=== PATIENT | female | born 1995 | race Caucasian/White ===

== ENCOUNTER 2018-01-01 06:22 | Inpatient (IN) | payer OTHER ==
[~2018-01-01 06:22] MED LIST: Buffered Lidocaine 0.9% SYRIN* 5 ML/SYR SYRINGE INTRADERM ONE; Metoclopramide IV* 5 MG/ML 2 ML VIAL IV SLOW PU ONE; Ondansetron INJ* 2 MG/ML VIAL IV ONE; Sodium Citrate/Citric Acid* 15 ML UDC PO ONE; ceFOXitin(*) 2 GM in NS 0.9% 50 ML* 50 ML IVPB SCH
[2018-01-01] MEDS ORDERED: ceFOXitin 2 GM IVPREMIX* 2 GM/50 ML BAG IVPB ONE (08:00)
[2018-01-01] MEDS ORDERED: Naloxone* 0.4 MG/ML 1 ML VIAL IV PRN ×2 (08:12→10:32)
[2018-01-01] MEDS ORDERED: diPHENhydraMINE IV* 50 MG/ML 1 ml VIAL (BENADRYL) IV PRN ×2 (08:12→10:32)
[2018-01-01] MEDS ORDERED: Acetaminophen IV 1GM/100ML * 1,000 MG/100 ML VIAL IVPB ONE (08:12)
[2018-01-01] MEDS ORDERED: fentaNYL* 50 MCG/ML 2 ML VIAL (100 MCG VIAL) IV PRN (08:12)
[2018-01-01] MEDS ORDERED: Scopolamine 1.5 mg* PATCH TRANSDERM PRN ×2 (08:12→10:32)
[2018-01-01] MEDS ORDERED: oxyCODONE TAB* 5 MG TAB PO PRN ×2 (08:12→10:32)
[2018-01-01] MEDS ORDERED: Ondansetron INJ* 2 MG/ML VIAL IV PRN ×2 (08:12→10:32)
[2018-01-01] MEDS ORDERED: Nalbuphine* 20 MG/ML 1 ML VIAL IV PRN (08:12)
[2018-01-01] MEDS ORDERED: HYDROmorphone INJ* 1 MG/ML CARPUJECT SYRINGE IV PRN (08:12)
[2018-01-01] MEDS ORDERED: Bupivacaine-MPF SPINAL* 7.5 MG/2 ML AMP ONE (08:29)
[2018-01-01] MEDS ORDERED: Morphine INJ* 10 MG/ML 1 ML CARPUJECT ONE (08:30)
[2018-01-01] MEDS ORDERED: fentaNYL* 50 MCG/ML 2 ML VIAL (100 MCG VIAL) ONE (08:30)
[2018-01-01] MEDS ORDERED: Morphine PF AMP (0.5MG/ML)* 5 MG/10 ML AMP ONE (08:31)
[2018-01-01] MEDS ORDERED: Phenylephrine IV* 40 MCG/ML 10 ML SYRINGE ONE (09:59)
[2018-01-01] MEDS ORDERED: Ketorolac INJ* 30 MG/ML 1 ML VIAL ONE (09:59)
[2018-01-01] MEDS ORDERED: OXYTOCIN* 10 UNITS/ML 1 ML VIAL ONE (09:59)
[2018-01-01] MEDS ORDERED: Witch Hazel PAD* JAR TOPICAL PRN (10:23)
[2018-01-01] MEDS ORDERED: oxyCODONE/Acetamin 5/325 MG* TAB PO PRN (10:32)
[2018-01-01] MEDS ORDERED: Acetaminophen TAB* 325 MG PO PRN (10:32)
[2018-01-01] MEDS: Docusate CAP* 100 MG PO SCH ×2 (13:55→20:23)
[2018-01-01] MEDS: Simethicone TAB* 80 MG TAB.CHEW PO SCH ×3 (13:55→20:23)
[2018-01-01] MEDS: Ketorolac INJ* 30 MG/ML 1 ML VIAL IV PRN (18:29)
[2018-01-02] MEDS: Ketorolac INJ* 30 MG/ML 1 ML VIAL IV PRN ×2 (00:32→05:58)
[2018-01-02 06:15] LABS: ABS Basophils 0 10^3/ul (0-0.2); ABS Eosinophils 0.1 10^3/ul (0-0.6); ABS Lymphocytes 1.1 10^3/ul (1.0-4.8); ABS Monocytes 0.7 10^3/ul (0-0.8); ABS Neutrophils 9.7 10^3/ul (1.5-7.7); ABS Nucleated RBC 0 10^3/ul; Eosinophil % 0.5 % (0-6); Hematocrit 24 % (35-47); Hemoglobin 8.2 g/dl (12.0-16.0); Lymphocyte % 9.6 % (25-47); Mean Corpuscular HGB Conc 34 g/dl (31-36); Mean Corpuscular Hemoglobin 30 pg (27-31); Mean Corpuscular Volume 87 fL (80-97); Mean Platelet Volume 9.4 um3 (7.4-10.4); Nucleated Red Blood Cells % 0; Platelet Count 160 10^3/ul (150-450); Red Blood Count 2.77 10^6/ul (4.0-5.4); Red Cell Distribution Width 15 % (10.5-15); White Blood Count 11.6 10^3/ul (3.5-10.8)
[2018-01-02] MEDS: oxyCODONE/Acetamin 5/325 MG* TAB PO PRN ×3 (07:43→19:42)
[2018-01-02] MEDS: Simethicone TAB* 80 MG TAB.CHEW PO SCH ×4 (07:43→19:42)
[2018-01-02] MEDS: Docusate CAP* 100 MG PO SCH ×3 (07:43→19:42)
[2018-01-02] MEDS: Ferrous Gluconate TAB* 324 MG TAB PO SCH ×2 (07:43→19:42)
--- NOTE | 2018-01-02 12:06 | OP ---
DATE OF OPERATION: 01/01/18 - ROOM #116 DATE OF : 89 SURGEON: Gareth Pedro MD INTEGRATED CIRCUITS INSPECTOR: Donna Hester CNM ANESTHESIOLOGIST: Dr. Quintanilla. ANESTHESIA: Spinal. PRE-OP DIAGNOSIS: 39 weeks gestation with a breech fetus. POST-OP DIAGNOSIS: 39 weeks gestation with a breech fetus. PROCEDURE PERFORMED: Primary low-transverse section. ESTIMATED BLOOD LOSS: 800 cc. URINE OUTPUT: 100 cc. IV FLUIDS: 2500 cc of lactated Ringers. MATERIALS TO LAB: Cord blood. INDICATIONS: This patient is a 22-year-old 1, para 0, followed in the clinic with a breech fetus. The patient had a known bicornuate uterus and, after discussion, the patient did not desire an external cephalic version attempt. section was scheduled and consent was signed. FINDINGS: Normal-appearing fallopian tubes and ovaries. Uterus appeared to have a more arcuate shape. Fetus was in the kayy breech presentation. Delivery was productive of a female infant, weighing 7 pounds 11 ounces with Apgars of 9 and 9. Time of delivery was 0937. COMPLICATIONS: None. DESCRIPTION OF PROCEDURE: The risks, benefits, and alternatives were described to the patient and informed consent was obtained. The patient was taken to the operating room with IV running where spinal anesthesia was induced and found to be adequate. The patient was prepped and draped in the normal sterile fashion in the dorsal supine position with leftward tilt. A Pfannenstiel skin incision was made with a scalpel and this was carried down to the underlying fascia sharply. The fascia was then scored in the midline with the scalpel. The incision was extended using Ybarra scissors. The rectus muscles were dissected off the rectus fascia using blunt and sharp dissection. The rectus muscles were in the midline bluntly. The peritoneum was also entered bluntly. A bladder blade was placed. A bladder flap was created sharply using Metzenbaum scissors. A low transverse uterine incision was made with the scalpel. This was carried down to the amniotic cavity which was productive of clear fluid. The incision was extended with blunt traction. The breech was elevated to the level of the incision without difficulty and delivered through the incision. With fundal pressure and gentle traction, the delivered to the level of the hips, and both legs were swept down and out. The was wrapped with a moistened towel, and she was rotated back and forth until each arm could be swept down and out. The head was kept in a flexed position, and delivered without difficulty. The had good tone and cried shortly after delivery. The cord was doubly clamped and cut. The infant was then handed to the awaiting ear machine operator. Cord blood was collected. The placenta then delivered with manual extraction. The uterus was then exteriorized and cleared of all clots and debris. The uterine incision was reapproximated using 0 Polysorb in a running-locked fashion. A second layer of imbricating sutures of 0 Polysorb was also placed with good hemostasis. The posterior cul-de-sac was irrigated with saline. The uterus was then returned to the abdomen, and the incision was reinspected and noted to be hemostatic. The peritoneum was closed with 3-0 Polysorb in a running fashion. The fascia was closed with 0 Polysorb in a running fashion. Subcutaneous tissues were reapproximated using 3-0 Vicryl in interrupted sutures. The skin was then closed with 4-0 Monocryl in a subcuticular stitch. Mastisol and Steri-Strips were placed over the incision which was then covered with a sterile bandage. The patient tolerated the procedure well. Sponge, lap, and needle counts were correct x2. [id number]/[facility] #: [id number] [facility]
[2018-01-02] MEDS: Ibuprofen TAB* 600 MG PO SCH ×2 (12:10→17:59)
[2018-01-03] MEDS: Ibuprofen TAB* 600 MG PO SCH ×4 (00:09→20:21)
[2018-01-03] MEDS: oxyCODONE/Acetamin 5/325 MG* TAB PO PRN ×5 (00:10→20:21)
[2018-01-03] MEDS: Docusate CAP* 100 MG PO SCH ×3 (08:21→20:20)
[2018-01-03] MEDS: Ferrous Gluconate TAB* 324 MG TAB PO SCH ×2 (08:22→20:20)
[2018-01-03] MEDS: Simethicone TAB* 80 MG TAB.CHEW PO SCH ×4 (08:22→20:20)
[2018-01-04] MEDS: oxyCODONE/Acetamin 5/325 MG* TAB PO PRN ×2 (03:30→09:36)
[2018-01-04] MEDS: Ibuprofen TAB* 600 MG PO SCH ×3 (03:30→09:37)
[2018-01-04 08:07] VITALS: BP 115/80
[2018-01-04] MEDS ORDERED: Scopolamine PATCH Remove* 1 NOTE MISC PATCH OFF ONE (08:13)
[2018-01-04] MEDS: Ferrous Gluconate TAB* 324 MG TAB PO SCH (09:36)
[2018-01-04] MEDS: Docusate CAP* 100 MG PO SCH (09:36)
[2018-01-04] MEDS: Simethicone TAB* 80 MG TAB.CHEW PO SCH (09:36)
[2018-01-04] MEDS ORDERED: Scopolamine PATCH Remove* 1 NOTE MISC PATCH OFF PRN (10:33)
== END 2018-01-04 12:08 | disposition home or self-care (01) | DRG 766 ==
LOC: MCHOB 06:22
PROVIDERS: ADMIT Obstetrics & Gynecology; ATTEND Obstetrics & Gynecology
PROC: 10D00Z1 Extraction of Products of Conception, Low, Open Approach (ICD-10-PCS; principal; 2018-01-01 08:45)
DX: O32.1XX0 Maternal care for breech presentation, not applicable or unspecified (principal); O90.81 Anemia of the puerperium; D64.9 Anemia, unspecified; Z3A.39 39 weeks gestation of pregnancy; Z37.0 Single live birth
CPT/HCPCS: 36415; 85025; A9270-GY; J0694; J1885; J2270; J2405; J2590; J2765; J3010

== ENCOUNTER 2019-10-12 00:42 | Inpatient (IN) | payer OTHER ==
[~2019-10-12 00:42] MED LIST changes: -Buffered Lidocaine 0.9% SYRIN* 5 ML/SYR SYRINGE INTRADERM ONE; +Buffered Lidocaine 1% SYRIN* 1 ML/SYRINGE INTRADERM ONE; -Metoclopramide IV* 5 MG/ML 2 ML VIAL IV SLOW PU ONE; -Ondansetron INJ* 2 MG/ML VIAL IV ONE; -Sodium Citrate/Citric Acid* 15 ML UDC PO ONE; -ceFOXitin(*) 2 GM in NS 0.9% 50 ML* 50 ML IVPB SCH
[2019-10-12] MEDS ORDERED: Ondansetron INJ* 2 MG/ML VIAL IV ONE (06:00)
[2019-10-12] MEDS ORDERED: Lactated Ringers 1000 ML Bag* 1,000 ML IV SCH ×2 (06:00→08:00)
[2019-10-12] MEDS ORDERED: Famotidine IV* 10 MG/ML 2 ML (20 mg) IV ONE (06:00)
[2019-10-12] MEDS ORDERED: Sodium Citrate/Citric Acid* 15 ML UDC PO ONE (06:00)
[2019-10-12] MEDS ORDERED: ceFOXitin 2 GM IVPREMIX* 2 GM/50 ML BAG ONE (06:08)
[2019-10-12 06:35] LABS: Urine Benzodiazepine Screen None Detected (None Detect); Urine Opiates Screen None Detected (None Detect)
[2019-10-12] MEDS ORDERED: fentaNYL* 50 MCG/ML 2 ML VIAL (100 MCG VIAL) ONE (07:39)
[2019-10-12] MEDS ORDERED: Morphine PF AMP (0.5MG/ML)* 5 MG/10 ML AMP ONE (07:40)
[2019-10-12] MEDS ORDERED: Morphine 10 MG/ML VIAL (1 ml) ONE (07:40)
[2019-10-12] MEDS ORDERED: Witch Hazel PAD* JAR TOPICAL PRN (07:48)
[2019-10-12] MEDS ORDERED: OXYTOCIN* 10 UNITS/ML 1 ML VIAL ONE (08:26)
[2019-10-12] MEDS ORDERED: Metoclopramide IV* 5 MG/ML 2 ML VIAL IV PRN (08:43)
[2019-10-12] MEDS ORDERED: Naloxone* 0.4 MG/ML 1 ML VIAL IV PRN ×2 (08:43→19:30)
[2019-10-12] MEDS ORDERED: Naloxone* 2 MG in NS 0.9% 250 ML* 250 ML IV PRN (08:43)
[2019-10-12] MEDS ORDERED: Ondansetron INJ* 2 MG/ML VIAL IV PRN (08:43)
[2019-10-12] MEDS ORDERED: Nalbuphine* 10 MG/ML 1 ML VIAL IV PRN ×2 (08:43→19:30)
[2019-10-12] MEDS ORDERED: fentaNYL* 50 MCG/ML 2 ML VIAL (100 MCG VIAL) IV PRN (08:46)
[2019-10-12] MEDS: Simethicone TAB* 80 MG TAB.CHEW PO SCH ×4 (09:35→20:16)
[2019-10-12] MEDS: Docusate CAP* 100 MG PO SCH ×3 (09:35→20:16)
[2019-10-12] MEDS: Ibuprofen TAB* 400 MG PO SCH ×3 (09:41→21:00)
[2019-10-12] MEDS ORDERED: Acetaminophen TAB* 325 MG PO ONE (12:15)
[2019-10-12] MEDS ORDERED: oxyCODONE TAB* 5 MG TAB PO ONE (12:15)
[2019-10-12] MEDS ORDERED: oxyCODONE TAB* 5 MG TAB ONE (12:20)
[2019-10-12] MEDS ORDERED: Acetaminophen TAB* 325 MG ONE (12:20)
[2019-10-12] MEDS: Acetaminophen TAB* 325 MG PO PRN (12:20)
[2019-10-12] MEDS ORDERED: Acetaminophen TAB* 325 MG PO PRN (19:29)
[2019-10-12] MEDS ORDERED: oxyCODONE TAB* 5 MG TAB PO PRN (19:30)
[2019-10-12] MEDS ORDERED: Ibuprofen TAB* 400 MG PO SCH (20:00)
[2019-10-13] MEDS ORDERED: oxyCODONE TAB* 5 MG TAB PO PRN ×2 (00:43)
--- NOTE | 2019-10-13 03:35 | OP ---
DATE OF OPERATION: 10/12/19 - ROOM #116 DATE OF : [birth year] SURGEON: Gareth Pedro MD. CLAIMS COORDINATOR: Sultana Shine CNM. ANESTHESIOLOGIST: Dr. Choe. ANESTHESIA: Spinal. PRE-OP DIAGNOSIS: 39 weeks gestation with a history of previous , keloid scar. POST-OP DIAGNOSIS: 39 weeks gestation with a history of previous , keloid scar. OPERATIVE PROCEDURE: Repeat low-transverse section. Keloid excision. ESTIMATED BLOOD LOSS: 600 cc. URINE OUTPUT: 75 cc. IV FLUIDS: 1600 cc lactated Ringer's. MATERIALS TO LAB: Cord blood. INDICATIONS: This patient is a 23-year-old 2, para 1, who presented today at 39 weeks gestation for a scheduled repeat section. The patient's course was uncomplicated. She was extensively counseled and consent was signed. FINDINGS: Normal-appearing uterus, fallopian tubes, and ovaries. Delivery was productive of a male infant weighing 7 pounds 6 ounces with Apgars of 9 and 9. Time of delivery was 8:26 a.m. COMPLICATIONS: None. DESCRIPTION OF PROCEDURE: The risks, benefits, and alternatives were described to the patient, and informed consent was obtained. The patient was taken to the operating room with IV running, where spinal anesthesia was induced and found to be adequate. The patient was prepped and draped in normal sterile fashion in the dorsal supine position with a leftward tilt. A Pfannenstiel skin incision was made with a scalpel around the patient's previous incision which was mostly a thick keloid scar, about 3-4mm thick. The scar tissue was grasped with an Allis, and removed with the scalpel. This was then carried down to the underlying fascia using the scalpel. The fascia was scored in the midline, and the incision was extended using Ybarra scissors. The fascia was dissected off the underlying rectus muscles using blunt and sharp dissection. The rectus muscles were in the midline using dissection with a Shanique clamp. The peritoneum was then entered sharply. A bladder blade was placed. A bladder flap was created sharply using Metzenbaum scissors. A low transverse uterine incision was then made with the scalpel. This was carried down to the amniotic membranes. The membranes were then ruptured, productive of clear fluid. The uterine incision was extended using blunt traction. The head was elevated to the level of the incision, and, with fundal pressure, the head delivered without difficulty. The shoulders then were also both delivered and the body followed. The had excellent tone and cried immediately on delivery. The cord was doubly clamped and cut. The infant was then handed to the awaiting poultry culler. Cord blood was collected. The placenta was delivered with manual extraction. The uterus was then exteriorized and cleared of all clots and debris. The uterine incision was then reapproximated using 0 Vicryl in a running-locked fashion. A second layer of imbricating 0 Vicryl sutures was then also placed for good hemostasis. The posterior cul-de-sac was irrigated with saline. The uterus was then returned to the abdomen. The incision was reinspected and still noted to be hemostatic. The peritoneum was closed with 3-0 Vicryl in a running fashion. The fascia was closed with 0 Vicryl in a running fashion. The subcutaneous tissues were copiously irrigated and made hemostatic using the Bovie. The subcutaneous tissues were then reapproximated using 3-0 Vicryl in interrupted sutures. The skin was then closed with latosha. A sterile bandage was then placed over the incision. The patient tolerated the procedure well. Sponge, lap, and needle counts were correct x2. [id number]/[facility] #: [id number] [facility]
[2019-10-13] MEDS: Ibuprofen TAB* 600 MG PO SCH ×4 (03:39→20:53)
[2019-10-13 06:38] LABS: ABS Basophils 0.1 10^3/ul (0-0.2); ABS Lymphocytes 1.2 10^3/ul (1.0-4.8); ABS Monocytes 0.6 10^3/ul (0-0.8); ABS Neutrophils 9.4 10^3/ul (1.5-7.7); Eosinophil % 0.4 %; Hematocrit 26 % (35-47); Hemoglobin 8.8 g/dL (12.0-16.0); Lymphocyte % 10.9 %; Mean Corpuscular HGB Conc 34 g/dL (31-36); Mean Corpuscular Hemoglobin 27 pg (27-31); Mean Corpuscular Volume 81 fL (80-97); Mean Platelet Volume 9.3 fL (7.4-10.4); Platelet Count 142 10^3/uL (150-450); Red Blood Count 3.21 10^6 /uL (3.70-4.87); Red Cell Distribution Width 16 % (10-15); White Blood Count 11.3 10^3/uL (3.5-10.8)
[2019-10-13] MEDS: Docusate CAP* 100 MG PO SCH ×3 (08:24→20:52)
[2019-10-13] MEDS: Simethicone TAB* 80 MG TAB.CHEW PO SCH ×4 (08:24→20:52)
[2019-10-13] MEDS: Acetaminophen TAB* 325 MG PO PRN ×2 (08:24→14:31)
[2019-10-13] MEDS: Ferrous Gluconate TAB* 324 MG TAB PO SCH (08:24)
[2019-10-13] MEDS ORDERED: Ibuprofen TAB* 600 MG ONE (09:42)
[2019-10-14] MEDS: Ibuprofen TAB* 600 MG PO SCH (07:36)
[2019-10-14] MEDS: Simethicone TAB* 80 MG TAB.CHEW PO SCH (07:37)
[2019-10-14] MEDS: Docusate CAP* 100 MG PO SCH (07:37)
[2019-10-14] MEDS: Acetaminophen TAB* 325 MG PO PRN (07:37)
[2019-10-14] MEDS: Ferrous Gluconate TAB* 324 MG TAB PO SCH (07:37)
[2019-10-14 07:42] VITALS: BP 105/61
== END 2019-10-14 12:19 | disposition home or self-care (01) | DRG 788 ==
LOC: MCHOB 05:46
PROVIDERS: ADMIT Obstetrics & Gynecology; ATTEND Obstetrics & Gynecology
PROC: 10D00Z1 Extraction of Products of Conception, Low, Open Approach (ICD-10-PCS; principal; 2019-10-12 07:45)
DX: O34.211 Maternal care for low transverse scar from previous cesarean delivery (principal); N85.8 Other specified noninflammatory disorders of uterus; O90.81 Anemia of the puerperium; D64.9 Anemia, unspecified; Z3A.39 39 weeks gestation of pregnancy; Z37.0 Single live birth
CPT/HCPCS: 36415; 80307; 85025; A9270-GY; G0480; J0694; J2270; J2405; J2590; J3010